=== PATIENT | female | born 1985 | race Caucasian/White ===

== ENCOUNTER 2019-01-23 16:37 | Emergency (ER) | payer MEDICAID, OTHER ==
[2019-01-23 16:47] VITALS: BP 120/94
--- NOTE | 2019-01-23 16:51 | EDPHY ---
H & P Time Seen by Provider: 01/23/19 17:00 HPI/ROS: CHIEF COMPLAINT: tooth ache HISTORY OF PRESENT ILLNESS: [This is a medically healthy 33-year-old female who has had 24 hr of progressive dental pain. It is excruciating, keeping her awake, bringing her to tears, and not relieved by [id number] medications which she has been using concert including NSAIDs and Tylenol. She is not aware of low-grade fever she has upon presentation. She does not feel that she is swollen though has complained of pain in the left posterior upper molar, her was not tooth. She is having no active discharge from the area. While the pain is severe, it is not radiating. It has been persistent and progressive. It does not radiate. [place] [facility] Monitoring Program checked: no activity in past two years She denies prior addiction, family history of duction, or known psychiatric problems such as bipolar disease. Discharge none Trismus none Trauma none REVIEW OF SYSTEMS: Gen: No fevers or chills. Respiratory: No cough, no dyspnea. Smoking Status: Never smoked Physical Exam: General: Well-developed well-nourished. Nontoxic. She is able to phonate well. She is at times brought to tears. HEENT: Membranes moist. No foul odor. There is no trismus. There is no drainage within the mouth nor pointing at the alveolar ridge. There is no discernible dental decay. Submandibular adenopathy is not noted. She is tender to the traction of the buccal mucosa adjacent to this tooth, however, there is no pointing of anything on the alveolar ridge or at the tooth structure itself. There is no evidence of cracks grossly on exam. This is involving tooth 16. Constitutional: Initial Vital Signs Temperature (C) 37.7 C 01/23/19 16:43 Heart Rate 76 01/23/19 16:43 Respiratory Rate 16 01/23/19 16:43 Blood Pressure 120/94 H 01/23/19 16:43 O2 Sat (%) 95 01/23/19 16:43 O2 Delivery Mode Room Air Allergies/Adverse Reactions: Cat/Feline Produc *RETIRED-07/08/12 [Cat/Feline Product Derivatives] Allergy ( Verified 08/05/10 10:04) Home Medications: Medication Instructions Recorded Celexa 01/23/19 Penicillin V Potassium 500 mg PO QID #40 tablet 01/23/19 Wellbutrin Sr 01/23/19 oxyCODONE HCL/ACETAMINOPHEN 1 - 2 each PO Q6 PRN #20 tablet 01/23/19 [Percocet 5-325 mg Tablet] Departure - Departure Disposition: Home, Routine, Self-Care Clinical Impression: Dental abscess Condition: Good Instructions: Dental Abscess (ED) Additional Instructions: Here your medications for the next few days: Penicillin 500 mg 4 times daily for 10 days Percocet -1 or 2 every 6 hr as needed for the pain. Often for Women of you're height, 1.5 tablets is feels is plenty. While on the Percocet, take [id number] Colace to prevent constipation You're prescribed Percocet. It is important you do not drive or drink or worker machinery for at least [18 hours] [24 hours]. Try to avoid extremes of hot or cold, obviously. Follow through with the dentist as scheduled. She developed a fever over 100.5 you should come back. Also on rare occasions swallowing difficulties ensue, at which time he should come back immediately. Referrals: NONE *PRIMARY CARE P,. [Primary Care Provider] - As per Instructions Prescriptions: oxyCODONE HCL/ACETAMINOPHEN [Percocet 5-325 mg Tablet] 1 - 2 each PO Q6 PRN #20 tablet PRN Reason: moderate to severe pain Penicillin V Potassium 500 mg PO QID #40 tablet
== END 2019-01-23 17:30 | disposition home or self-care (01) ==
LOC: CED 16:37
DX: K04.7 Periapical abscess without sinus (principal)
CPT/HCPCS: 99284-ER